=== PATIENT | male | born 2000 | race Caucasian/White ===

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

== ENCOUNTER 2021-06-02 07:04 | Emergency (ER) | payer OTHER, SELFPAY ==
[2021-06-02 07:37] VITALS: BP 120/56; PULSE 60; RESP 16; TEMP 36.9; O2SAT 99; BMI 22.2
--- NOTE | 2021-06-02 08:26 | ED_ITS ---
HPI - Back Pain/Injury General Chief Complaint: Back Pain/Injury Stated Complaint: Back pain Time Seen by Provider: 06/02/21 08:21 Source: patient Mode of arrival: ambulatory Limitations: no limitations History of Present Illness HPI Narrative: 21 y/o male presenting to the ER with middle back pain that started this morning when he was twisting to reach for his backpack. 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 He reports the pain is similar to when he had muscle spasms in the past. He denies any radiation. It is worse with movement. No urinary symptoms. MD elicited complaint: back pain Pertinent past history: prior back pain Onset (ago): hour(s) Timing: constant Severity: moderate Similar Symptoms Previously: Yes Quality: spasming Location: right lower back and left lower back Radiation: none Exacerbating factors: movement Relieving factors: supine Context: turning/twisting Associated symptoms: denies other symptoms Related Data Previous Rx's Medication Instructions Recorded cyclobenzaprine 10 mg tablet 10 mg PO TID PRN #14 tab 03/15/20 ibuprofen 600 mg tablet 600 mg PO Q6H PRN #30 tab 03/15/20 ibuprofen 600 mg tablet 600 mg PO Q6H PRN #20 tab 07/16/20 cyclobenzaprine 10 mg tablet 10 mg PO TID PRN #8 tab 07/30/20 lidocaine 5 % topical patch 1 patch TOPICAL DAILY #15 ea 07/30/20 (Lidoderm) naproxen 500 mg tablet 500 mg PO BID PRN #20 tab 07/30/20 cyclobenzaprine 10 mg tablet 10 mg PO TID PRN #14 tab 06/02/21 ibuprofen 600 mg tablet 600 mg PO Q8H PRN #20 tab 06/02/21 Allergies Allergy/AdvReac Type Severity Reaction Status Date / Time amoxicillin [AMOXICILLIN] Allergy Unknown RASH Verified 10/11/20 12:23 Seasonal Allergy Unknown Unknown Uncoded 10/11/20 12:23 Review of Systems Review of Systems: Constitutional: No Fever, No Chills Cardiovascular: No Chest Pain, No SOB Gastrointestinal: No Nausea, No Vomiting, No Diarrhea, No abdominal Pain Genitourinary: No Dysuria, No Urinary Frequency, No Hematuria Musculoskeletal: No joint pain, + Myalgias Skin: No Skin Lesions, No rash Neuro: No Weakness, No Numbness Heme/Lymph: No Bruising PMFSH Past Medical History Medical History (Updated 06/02/21 @ 08:26 by TRICIA Shelton) Asthma Surgical History (Updated 10/14/20 @ 16:34 by Raf Salazar MD) H/O elbow surgery Social History Social History (Updated 10/11/20 @ 12:25 by CHUN Mayers) Alcohol intake: current Alcohol intake frequency: holidays/special occasions o nly Patient Tobacco Use Status: Never used Tobacco Substance Use Type: Marijuana Advance Directives: No Advance Directives Information Provided: No Current occupational status: employed Current occupation: [employer] Physical Exam Vital Signs: Vital Signs: Last Vital Signs Temp 98.4 F 06/02/21 07:37 Pulse 60 06/02/21 07:37 Resp 16 06/02/21 07:37 BP 120/56 L 06/02/21 07:37 Pulse Ox 99 06/02/21 07:37 BMI result Body Mass Index 22.2 Appearance: Alert. Oriented X3. No acute distress. HEENT: normal inspection CVS: Normal heart rate and rhythm. Pulses normal. Respiratory: No respiratory distress. Skin: Skin warm and dry. Normal skin color. Normal skin turgor. No rashes. Back: normal inspection, normal ROM with pain upon rotation to the left and right. no CVA tenderness but he has palpable spasm and tenderness of the paraspinous muscles in the lower thoracic and upper lumbar areas Extremities: atraumatic, normal inspection, normal ROM Neuro: Oriented X 3. No motor deficit. No sensory deficit. Course Course Course Narrative: 21-year-old male presents to the ER with middle and lower back pain that started this morning after he was twisting. Exam and clinical presentation are consistent with muscle spasm. Will treat with Flexeril and ibuprofen. Patient will follow-up with the [facility] & his PCP as needed, work note provided per request. Critical Care Time Critical Care Time Critical Care Time: No Discharge Plan Discharge Clinical Impression: Thoracic back pain Qualifiers: Chronicity: acute Back pain laterality: bilateral Qualified Code(s): M54.6 - Pain in thoracic spine Patient Disposition: Home, Self-Care Instructions: Back Pain (ED) Additional Instructions: No bending, lifting or twisting. Use ice several times per day for 20 minutes at a time for the next 48 hours and then change to heat. Take medications as prescribed to help with pain and discomfort. Follow up with your Primary Care Doctor this week. If your pain worsens, if you develop new numbness, tingling, weakness, loss of function or incontinence call 911 or come back to the ER right away for evaluation. Prescriptions: New cyclobenzaprine 10 mg tablet 10 mg PO TID PRN (Reason: muscle spasm) Qty: 14 RF: 0 ibuprofen 600 mg tablet 600 mg PO Q8H PRN (Reason: pain) Qty: 20 RF: 0 No Action ibuprofen 600 mg tablet 600 mg PO Q6H PRN (Reason: pain) Qty: 20 RF: 0 cyclobenzaprine 10 mg tablet 10 mg PO TID PRN (Reason: muscle spasm) Qty: 8 RF: 0 lidocaine [Lidoderm] 5 % adhesive patch,medicated 1 patch topical DAILY Qty: 15 RF: 0 naproxen 500 mg tablet 500 mg PO BID PRN (Reason: pain) Qty: 20 RF: 0 cyclobenzaprine 10 mg tablet 10 mg PO TID PRN (Reason: muscle spasm) Qty: 14 RF: 0 ibuprofen 600 mg tablet 600 mg PO Q6H PRN (Reason: pain) Qty: 30 RF: 0 Referrals: [facility] [Provider Group] - 2 days Stand Alone Forms: Work/School Release Interventions: ED Discharge Assessment Last Done: 06/02/21 08:54 Discharge Date/Time: 06/02/21 08:55
== END 2021-06-02 08:55 | disposition home or self-care (01) ==
PROVIDERS: Emergency Provider Emergency Medicine
DX: M54.6 Pain in thoracic spine (principal); F12.90 Cannabis use, unspecified, uncomplicated
CPT/HCPCS: 99283

== ENCOUNTER 2022-03-07 15:05 | Emergency (ER) | payer OTHER, SELFPAY ==
--- NOTE | ~2022-03-07 | XR_ITS ---
EXAMINATION: XR HAND, RIGHT CLINICAL INFORMATION: Pain. COMPARISON: None TECHNIQUE: PA, lateral, and oblique views of the right hand. FINDINGS: Cutaneous marker is directed towards the second distal phalanx. No fractures, malalignment or arthropathic changes identified. No embedded radiopaque foreign bodies or soft tissue emphysematous changes. XR/XR hand RT 2V IMPRESSION: *Normal right hand. Normal appearance of the right second metacarpal ray.
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
[2022-03-07 15:08] VITALS: BP 102/61; PULSE 80; RESP 18; TEMP 36.8; O2SAT 97; BMI 22.9
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
--- OUTSIDE RECORDS SUMMARY | 2022-03-07 15:52 | XMS_ITS | Continuity of Care Document ---
:2000 Author Organization [facility] Address [address] [place] [address]- Care Team Providers Name Role Phone Maggie CARVER, Robyn Rose Primary Care Physician Encounter [facility] Date(s): 07/08/19 - 07/18/19 [facility] [address] [place] [address]- [facility] Attending Physician: Sindhu Powell Admitting Physician: Sindhu Powell Referring Physician: Admtr ArJyothi Allergies, Adverse Reactions, Alerts Substance Reaction Severity Status amoxicillin Active Problem List Condition Effective Dates Status Health Status Informant Asthma(Confirmed) Active Social History Social History Type Response Smoking Status Never smoker; Tobacco user i n household: Yes; Other: parents smoke outside; entered on: 01/20/17 Sex
--- OUTSIDE RECORDS SUMMARY | 2022-03-07 15:52 | XMS_ITS | Continuity of Care Document ---
:2000 Author Organization [facility] Address [address] [place] [id number]- Care Team Providers Name Role Phone Maggie CARVER, Robyn Rose Primary Care Physician [phone] Encounter [facility] Date(s): 04/20/19 - 04/30/[address] [address]- [facility] Attending Physician: Sindhu Powell Admitting Physician: Sindhu Powell Referring Physician: AdmtrSindhu Allergies, Adverse Reactions, Alerts Substance Reaction Severity Status amoxicillin Active Medications naproxen 500 mg oral tablet 1 tablet = 500 mg, By Mouth, 2 times a day, with food 1 tab po BID x 10 days even if no pain, then PRN, # 60 tablet, 1 Refills, Maintenance, 03/13/19 17:45:22 EST, Tablet Start Date: 03/13/19 Stop Date: 05/12/19 Status: Ordered Problem List Condition Effective Dates Status Health Status Informant Asthma(Confirmed) Active Social History Social History Type Response Smoking Status Never smoker; Tobacco user i n household: Yes; Other: parents smoke outside; entered on: 01/20/17 Sex
--- OUTSIDE RECORDS SUMMARY | 2022-03-07 15:52 | XMS_ITS | Continuity of Care Document ---
:2000 Author Organization [facility] Address [address] [place] [address]- Care Team Providers Name Role Phone Robyn Serrano MD Primary Care Physician Encounter [facility] Date(s): 05/05/19 - 05/05/[address] [address]- [facility] Discharge Disposition: A-D/C Home Attending Physician: Garrett Carr MD Admitting Physician: Garrett Carr MD Referring Physician: Not on Staff, Referring MD Allergies, Adverse Reactions, Alerts Substance Reaction Severity [...] Dates Status Health Status Informant Asthma(Confirmed) Active Vital Signs Most recent to oldest 1 2 3 [Reference Range]: Weight 69.7 kg 69.7 kg (05/05/19 9:42 AM) (05/05/19 8:53 AM) Oxygen Saturation [94-100 100 % 100 % 100 % %] (05/05/19 10:22 AM) (05/05/19 8:53 AM) (05/05/19 8:47 AM) Pulse Rate [55-90 bpm] 71 bpm 91 bpm 99 bpm (05/05/19 10:22 AM) *H* *H* (05/05/19 8:53 AM) (05/05/19 8:4 7 AM) Blood Pressure 115/66 mm Hg 125/68 mm Hg [71-110/30-71 mm Hg] *H* *H* (05/05/19 10:22 AM) (05/05/19 8:53 AM) Respiratory Rate [16-30 18 br/min 18 br/min br/min] (05/05/19 10:22 AM) (05/05/19 8:53 AM) Temperature [96.8-100.4 98.2 DegF DegF] (05/05/19 8:53 AM) Mode of Delivery (Oxygen) Room air Room air Room a ir (05/05/19 10:22 AM) (05/05/19 8:53 AM) (05/05/19 8:47 AM) Blood pressure sites Arm, right (05/05/19 8:53 AM) Temperature Route Oral (05/05/19 8:53 AM) Dry Weight 69.7 kg 69.7 kg (05/05/19 9:42 AM) (05/05/19 8:53 AM) Weight Obtained Via Standing scale (05/05/19 8:53 AM) Dry Weight Obtained Via Standing scale (05/05/19 8:53 AM) Social History Social History Type Response Smoking Status Never smoker; Tobacco user i n household: Yes; Other: parents smoke outside; entered on: 01/20/17 Sex
--- OUTSIDE RECORDS SUMMARY | 2022-03-07 15:52 | XMS_ITS | Continuity of Care Document ---
:2000 Author Organization [facility] Address [address] [place] [address]- Care Team Providers Name Role Phone Robyn Serrano MD Primary Care Physician [place] [facility] 07[place] - 07/15/19 [facility] [address] [place] [address]- [facility] Encounter Diagnosis Vomiting (Discharge Diagnosis) - 07/08/19 Attending Physician: Ganesh CARVER, Orestes Villalobos Referring Physician: Robyn Serrano MD Allergies, Adverse Reactions, Alerts Substance Reaction Severity Status amoxicillin Active Medications Zofran ODT 4 mg oral tablet, disintegrating 1 tablet = 4 mg, By Mouth, Every 8 hours, PRN Nausea & Vomiting, prn for nausea and vomiting, # 10 tablet, 1 Refills, Acute 07/17/19 11:30:00 EDT, 07/08/19 11:30:00 EST, Tablet, [id number], cm, 07/08/19 11:14:00 EST, Height, 69.7, kg, 1... Start Date: 07/08/19 Stop Date: 07/17/19 Status: Ordered Problem List Condition Effective Dates Status Health Status Informant Asthma(Confirmed) Active Diagnosis Diagnosis Type Effective Dates Health Status Clinical Serv ice Informant Vomiting Discharge 07/08/19 Diagnosis Vital Signs Most recent to oldest [Reference Range]: 1 Height 176.4 cm (07/08/19 11:14 AM) Oxygen Saturation [94-100 %] 100 % (07/08/19 11:14 AM) Pulse Rate [55-90 bpm] 80 bpm (07/08/19 11:14 AM) Blood Pressure [71-110/30-71 mm Hg] 124/68 mm Hg *H* (07/08/19 11:14 AM) Respiratory Rate [16-30 br/min] 16 br/min (07/08/19 11:14 AM) Temperature [96.8-100.4 DegF] 99 DegF (07/08/19 11:14 AM) Mode of Delivery (Oxygen) Room air (07/08/19 11:14 AM) Blood pressure sites Arm, left (07/08/19 11:14 AM) Temperature Route Oral (07/08/19 11:14 AM) Social History Social History Type Response Smoking Status Never smoker; Tobacco user i n household: Yes; Other: parents smoke outside; entered on: 01/20/17 Sex
--- NOTE | 2022-03-07 16:55 | PC.NURSE ---
Discharge instructions provided to pt. Pt verbalizes understanding.
== END 2022-03-07 16:56 | disposition home or self-care (01) ==
PROVIDERS: Emergency Provider Emergency Medicine
DX: S00.12XA Contusion of left eyelid and periocular area, initial encounter (principal); S02.2XXA Fracture of nasal bones, initial encounter for closed fracture; R51.9 Headache, unspecified; M54.2 Cervicalgia; Y04.2XXA Assault by strike against or bumped into by another person, initial encounter; Y93.9 Activity, unspecified; Y92.9 Unspecified place or not applicable; Y99.9 Unspecified external cause status; Z79.899 Other long term (current) drug therapy
CPT/HCPCS: 70450; 70486; 72125; 73120; 99284

== ENCOUNTER → 2024-12-29 00:05 | Outpatient (BNV) | payer SELFPAY | PROVIDERS: Emergency Provider Emergency Medicine; Visit Provider Radiology Diagnostic Radiology | DX: R06.02 Shortness of breath (principal); R05.9 Cough, unspecified | CPT/HCPCS: 71045 ==

== ENCOUNTER 2024-12-29 00:47 | Emergency (ER) | payer SELFPAY ==
--- NOTE | 2024-12-29 | ECG_ITS ---
Test Reason : ASTHMA Blood Pressure : */* mmHG Vent. Rate : 75 BPM Atrial Rate : 75 BPM P-R Int : 158 ms QRS Dur : 86 ms QT Int : 384 ms P-R-T Axes : 62 16 35 degrees QTcB Int : 428 ms Normal sinus rhythm Normal ECG No previous ECGs available Referred By: Tanisha Javier Electronically Signed By: KERI MOORE MD
--- NOTE | ~2024-12-29 | XR_ITS ---
CLINICAL HISTORY: SOB cough 1 view chest x-ray Comparison: None provided Findings: Mildly diffuse interstitial opacities with bronchial wall thickening. No significant pleural effusion or pneumothorax. Normal size heart. No acute fracture. IMPRESSION: Possible small airways disease. This document has been electronically signed by: Kaden Zamorano MD on 12/29/2024 01:50:02
[2024-12-29 00:50] VITALS: BP 124/51; PULSE 68; RESP 18; TEMP 37.2; O2SAT 96; BMI 27.3
--- NOTE | 2024-12-29 01:02 | ED_ITS ---
HPI - Asthma General Chief Complaint: Asthma Stated Complaint: SOB Time Seen by Provider: 12/29/24 00:57 Source: patient Mode of arrival: ambulatory Limitations: no limitations History of Present Illness ED Provider: Dr. Tanisha Javier HPI Narrative: Patient agrees with the emergency room complaining of an asthma exacerbation. Patient states it started out as a viral infection, runny nose and coughing, no fever or chills. Patient states that he has been using his inhaler at home with no relief. Related Data Previous Rx's ?Medication ?Instructions ?Recorded cyclobenzaprine 10 mg tablet 10 mg PO TID PRN muscle s pasm #14 03/15/20 tabs ibuprofen 600 mg tablet 600 mg PO Q6H PRN pain #30 t abs 03/15/20 ibuprofen 600 mg tablet 600 mg PO Q6H PRN pain #20 t abs 07/16/20 cyclobenzaprine 10 mg tablet 10 mg PO TID PRN muscle s pasm #8 07/30/20 tabs lidocaine 5 % topical patch 1 patch topical DAILY #15 ea 07/30/20 (Lidoderm) naproxen 500 mg tablet 500 mg PO BID PRN pain #20 t abs 07/30/20 cyclobenzaprine 10 mg tablet 10 mg PO TID PRN muscle s pasm #14 06/02/21 tabs ibuprofen 600 mg tablet 600 mg PO Q8H PRN pain #20 t abs 06/02/21 albuterol sulfate 90 mcg/actuation 2 puff inhalation Q 4-6H PRN 12/29/24 aerosol inhaler (Ventolin HFA) shortness of breath or wheezing #8.5 grams benzonatate 100 mg capsule 100 mg PO TID PRN cough #12 caps 12/29/24 prednisone 50 mg tablet 50 mg PO DAILY #4 tabs 12/29 Allergies Allergy/AdvReac Type Severity Reaction Status Date / Time amoxicillin (AMOXICILLIN) Allergy Unknown RASH Verified 12/29/24 01:00 Seasonal Allergy Unknown Unknown Uncoded 10/11/20 12:23 Review of Systems Review of Systems: Constitutional : No Weight loss, No Fever, No Chills, No Night Sweats, No Fatigue, No Malaise ENT/Mouth : No Hearing loss, No Ear Pain, No Nasal Congestion, No Sinus Pain, No Hoarseness, No sore throat, No Rhinorrhea, No Swallowing Difficulty Eyes: No Eye Pain, No Swelling, No Redness, No Foreign Body, No Discharge, No Vision Changes Cardiovascular : No Chest Pain, No SOB, No Dyspnea on Exertion, No Orthopnea, No Edema, No Palpitations Respiratory : Complaining of cough, wheezing, shortness of breath Gastrointestinal : No Nausea, No Vomiting, No Diarrhea, No Constipation, No abdominal Pain, No Hematochezia, No Melena Genitourinary : no irregular bleeding, No Dysuria, No Urinary Frequency, No He maturia, No Urinary Incontinence, No Urgency, No Flank Pain, No Urinary Flow Changes, No Hesitancy Musculoskeletal : No joint pain, No Myalgias, No Joint Swelling Skin : No Skin Lesions, No rash Neuro : No Weakness, No Numbness, No Paresthesias, No Loss of Consciousness, No Dizziness, No Headache Psych : No Anxiety/Panic, No Depression, No SI/HI/AH/VH, No Social Issues, Heme/Lymph: No Bruising, No Bleeding,No Lymphadenopathy Endocrine : No Polyuria, No Polydipsia, No Temperature Intolerance [facility] Past Medical History Medical History Asthma Surgical History H/O elbow surgery Social History Social History Alcohol intake: current Alcohol intake frequency: holidays/special occasions only Patient Tobacco Use Status: Never used Tobacco Substance Use Type: Marijuana Advance Directives: No Current occupational status: employed Current occupation: [employer] Physical Exam Exam: Exam: Appearance: Alert. Oriented X3. No acute distress. Eyes: Pupils equal, round and reactive to light. ENT: Pharynx normal. Neck: Normal inspection. Neck supple. No lymph nodes noted. No crepitus CVS: Normal heart rate and rhythm. Pulses normal. Normal S1 and S2 Respiratory: Bilateral wheezing, fairly good air movement, no rales or crackles, speaking in full sentences, oxygen saturation 96% on room air Abdomen: Soft and nontender. No rigidity. No distention. Skin: Skin warm and dry. Normal skin color. Normal skin turgor. Extremities: No lower extremity edema. No Lacerations. No Rash Neuro: Oriented X 3. No motor deficit. No sensory deficit. Moving all extremities. No slurred speech. CN 2 through 12 grossly intact Psych: calm, cooperative, normal affect Vital Signs: Vital Signs: Last Vital Signs Temp 98.9 F 12/29/24 00:50 Pulse 68 12/29/24 00:50 Resp 18 12/29/24 00:50 BP 124/51 L 12/29/24 00:50 Pulse Ox 96 12/29/24 00:50 O2 Del Method Room Air 12/29/24 00:50 BMI result Body Mass Index 27.3 Course Course Course Narrative: Patient complaining of an asthma exacerbation, failed treatment at home with nebulizations and rescue inhalers. Patient receiving a nebulization treatment, IV Solu-Medrol and magnesium Chest x-ray is pending Medications Administered Discontinued Medications Generic Name Dose Route Start Last Admin Trade Name Freq PRN Reason Stop Dose Admin Albuterol Sulfate 5 mg/ 0 mg 12/29/24 01:19 12/29/24 01:20 Albuterol/Ipratropium 3 ml INHALE 12/29/24 01:20 1 each ONCE ONE Administration Magnesium Sulfate 2 gm in 50 mls @ 150 mls/hr 12/29/24 01:00 12/29/24 01:05 Magnesium Sulfate/H2o IV 12/29/24 01:19 150 mls/hr ONCE ONE Administration Methylprednisolone Sodium Succinate 125 mg 12/29/24 01:00 12/29/24 01:05 Methylprednisolone Sod Succ 125 Mg/2 Ml Vial IVPUSH 12/29/24 01:01 125 mg ONCE ONE Administration Medical Decision Making Medical Decision Making [facility] Narrative: Chest x-ray shows small airway disease, no obvious infiltrates Serology negative for influenza RSV and COVID After the above-mentioned treatment, patient no longer wheezing, moving air within normal limits, oxygen saturation 98% on room air Patient was ambulated in the emergency room without oxygen desaturation or shortness of breath or wheezing. Differential Diagnosis Differential Diagnoses: The differential diagnosis associated with the presentation includes (Asthma exacerbation, COVID, influenza, RSV) Admission/Observation Consideration of admission/observation: Escalation of care including admission/observation considered (Given patient's initial presentation, observation was considered) Lab Data [facility] Lab Attestation statement: I reviewed the patient's lab results. Labs: Lab Results 12/29/24 Range/Units 01:17 Influenza Type A (PCR) NEGATIVE (Negative) Influenza Type B (PCR) NEGATIVE (Negative) RSV RNA Qual (PCR) NEGATIVE (Negative) SARS-CoV-2 RNA (RT-PCR) NEGATIVE (Negative) Independent Interpretation I performed an independent interpretation of an: Plain X-Ray Radiology Impression Discussion of test interpretation with radiology: I have reviewed the radiologi st's reading. Radiologist Impression: Mildly diffuse interstitial opacities with bronchial wall thickening. No significant pleural effusion or pneumothorax. Normal size heart. No acute fracture. Critical Care Time Critical Care Time Critical Care Time: Yes Total Critical Care Time: 35 Attestation: I have personally provided critical care time. Time includes review of lab data, radiology results, discussion with consultants, and monitoring for potential decompensation. Intervention performed as documented. Discharge Plan Discharge Clinical Impression: Asthma with acute exacerbation Patient Disposition: Home, Self-Care Instructions: Asthma (ED) Additional Instructions: Please follow-up with your primary care physician tomorrow. If you have any worsening or new symptoms, please return to the emergency room or call 911 Prescriptions: New albuterol sulfate [Ventolin HFA] 90 mcg/actuation HFA aerosol inhaler 2 puff inhalation Q4-6H PRN (Reason: shortness of breath or wheezing) Qty: 8.5 1RF benzonatate 100 mg capsule 100 mg PO TID PRN (Reason: cough) Qty: 12 0RF prednisone 50 mg tablet 50 mg PO DAILY Qty: 4 0RF No Action ibuprofen 600 mg tablet 600 mg PO Q6H PRN (Reason: pain) Qty: 20 0RF cyclobenzaprine 10 mg tablet 10 mg PO TID PRN (Reason: muscle spasm) Qty: 8 0RF lidocaine [Lidoderm] 5 % adhesive patch,medicated 1 patch topical DAILY Qty: 15 0RF Rx Instructions: leave on most painful area for up to 12 hrs naproxen 500 mg tablet 500 mg PO BID PRN (Reason: pain) Qty: 20 0RF cyclobenzaprine 10 mg tablet 10 mg PO TID PRN (Reason: muscle spasm) Qty: 14 0RF ibuprofen 600 mg tablet 600 mg PO Q6H PRN (Reason: pain) Qty: 30 0RF cyclobenzaprine 10 mg tablet 10 mg PO TID PRN (Reason: muscle spasm) Qty: 14 0RF ibuprofen 600 mg tablet 600 mg PO Q8H PRN (Reason: pain) Qty: 20 0RF Stand Alone Forms: Work/School Release Print Language: Japanese
[2024-12-29] MEDS: Magnesium Sulfate/H2O 2 GM/50 ML PIGGYBACK IV (01:05)
[2024-12-29] MEDS: Albuterol Sulfate 5 MG, Albuterol/Iprat 2.5/0.5MG 3 ML 3 ML INHALE (01:20)
[2024-12-29 02:04] LABS: Resp Syncy Virus RNA Qual PCR NEGATIVE (Negative); SARS COV2 PCR INHOUSE NEGATIVE (Negative)
--- NOTE | 2024-12-29 02:30 | MHC.EDTECH ---
Ambulating trial O2-98%
[2024-12-29 02:56] VITALS: BP 117/55; PULSE 83; RESP 18; TEMP 36.7; O2SAT 98
[2024-12-29 02:58] VITALS: BP 117/55; PULSE 83; RESP 18; TEMP 36.7; O2SAT 98
== END 2024-12-29 02:50 | disposition home or self-care (01) ==
PROVIDERS: Emergency Provider Emergency Medicine
DX: J45.901 Unspecified asthma with (acute) exacerbation (principal); R09.89 Other specified symptoms and signs involving the circulatory and respiratory systems; R05.9 Cough, unspecified; Z03.818 Encounter for observation for suspected exposure to other biological agents ruled out
CPT/HCPCS: 71045; 87637; 93005; 96365; 96375; 99284; 99285; J2919; J3475

== ENCOUNTER → 2024-12-29 01:08 | Outpatient (BNV) | payer SELFPAY | PROVIDERS: Emergency Provider Emergency Medicine; Visit Provider Internal Medicine Cardiovascular Disease | DX: J45.909 Unspecified asthma, uncomplicated (principal) | CPT/HCPCS: 93010 ==

== ENCOUNTER 2025-05-08 08:00 | Outpatient (REF) | payer OTHER, SELFPAY ==
[2025-05-08 09:51] LABS: MANUAL DIFF FLAG NO
[2025-05-08 10:55] LABS: Hematocrit 47.1 % (42.0-52.0); Hemoglobin 15.9 g/dl (14.0-18.0); Imm Gran Abs Auto 0.02 X10*3/uL (0.00-0.03); Imm Gran Pct Auto 0.3 % (0.0-0.4); Lymphocytes Absolute Auto 1.8 X10*3/uL (1.2-4.9); Mean Corpuscular HGB Conc 33.8 g/dl (31.0-36.0); Mean Corpuscular Hemoglobin 30.7 pg (27.0-33.0); Mean Corpuscular Volume 90.9 fL (80.0-98.0); NRBC Abs Auto 0.000 X10*3/uL (0.0-0.012); NRBC Pct Auto 0.0 /100WBC (0.0-0.2); Platelet Count 289 X10*3/uL (160-400); Red Blood Count 5.18 X10*6/uL (4.60-5.80); White Blood Count 7.4 X10*3/uL (4.8-10.8)
[2025-05-08 12:15] LABS: Albumin Level 5.1 g/dL (3.5-5.0); Alkaline Phosphatase 94 U/L (39-117); Anion Gap 11 (12-20); Aspartate Amino Transferase 28 U/L (5-37); Blood Urea Nitrogen 16 mg/dL (9-16); Calcium 9.4 mg/dL (8.4-10.2); Carbon Dioxide 27 mmol/L (22-29); Chloride 106 mmol/L (96-108); Cholesterol 143 mg/dL (<200); Estimated Glomerular Filt Rate > 60; HDL Cholesterol 50 mg/dL (>40); Potassium 4.2 mmol/L (3.3-5.1); Sodium 140 mmol/L (135-145); Total Protein 8.0 g/dL (6.5-8.0); Triglycerides 85 mg/dL (<150)
[2025-05-08 12:19] LABS: Folate 9.1 ng/mL (> or = 4.0); Vitamin B12 758 pg/mL (200-900)
[2025-05-08 12:29] LABS: Alanine Aminotransferase 35 U/L (0-40)
[2025-05-08 12:54] LABS: Reflex LDLD? No
[2025-05-12 14:49] LABS: Vitamin D 25-OH, D2 <4 ng/mL; Vitamin D 25-OH, D3 29 ng/mL; Vitamin D 25-OH, Total 29 ng/mL (30-100)
[2025-05-14 14:38] LABS: Testosterone, Free 116.4 pg/mL (35.0-155.0)
== END 2025-05-08 08:01 | disposition home or self-care (01) ==
LOC: HO.LAB 08:00
PROVIDERS: Visit Provider Student in an Organized Health Care Education/Training Program
DX: Z00.00 Encounter for general adult medical examination without abnormal findings (principal); J45.50 Severe persistent asthma, uncomplicated; G47.00 Insomnia, unspecified; R09.82 Postnasal drip; Z13.1 Encounter for screening for diabetes mellitus; R53.83 Other fatigue; Z13.21 Encounter for screening for nutritional disorder; Z13.220 Encounter for screening for lipoid disorders; Z23 Encounter for immunization
CPT/HCPCS: 36415; 80053; 80061; 82306; 82607; 82746; 83036; 84402; 84403; 85025; 90471; 90656; 99212